=== PATIENT | male | born 1955 | race Caucasian/White ===

== ENCOUNTER 2016-10-19 14:03 | Emergency (ER) | payer OTHER ==
[~2016-10-19] VITALS: Ht 188 cm; Wt 81.6 kg
--- NOTE | 2016-10-19 14:05 | PHYS DOC ---
Adult General HPI HPI Patient is a 61 year old male presenting to the emergency department via EMS for evaluation of altered mental status. Patient was reportedly laying on the sidewalk confused and an ambulance was called and they said that he was quite confused. Patient has since returned back to baseline. Patient admits that he has seizures and takes Dilantin daily. He does not know if he missed his last dose. Patient says that he is having no headache chest pain abdominal pain back pain unilateral weakness numbness or tingling. He does not remember the specific circumstances of how he passed out. Patient is in no obvious distress with normal vital signs. Review of Systems Review of Systems Constitutional: Denies fever or chills [] Eyes: Denies change in visual acuity, redness, or eye pain [] HENT: Denies nasal congestion or sore throat [] Respiratory: Denies cough or shortness of breath [] Cardiovascular: No additional information not addressed in HPI [] GI: Denies abdominal pain, nausea, vomiting, bloody stools or diarrhea [] : Denies dysuria or hematuria [] Musculoskeletal: Denies back pain or joint pain [] Integument: Denies rash or skin lesions [] Neurologic: Denies headache, focal weakness or sensory changes [] Current Medications Current Medications Current Medications Medications (Trade) Dose Ordered Sig/Joseph Start Time Stop Time Status Last Admin Dose Admin Ceftriaxone Sodium 50 ml @ 100 mls/hr 1X ONCE 10/19/16 15:30 10/19/16 16:00 DC 10/19/16 15:21 100 MLS/HR Sodium Chloride 1,000 ml @ 1,000 mls/hr 1X ONCE 10/19/16 14:30 10/19/16 15:30 DC 10/19/16 14:59 1,000 MLS/HR Allergies Allergies Allergies Coded Allergies Type Severity Reaction Last Updated Verified No Known Drug Allergies 10/19/16 No Physical Exam Physical Exam Constitutional: Disheveled chronically ill-appearing male. HENT: Normocephalic, atraumatic, bilateral external ears normal, oropharynx moist, no oral exudates, nose normal. [] Eyes: PERRLA, EOMI, conjunctiva normal, no discharge. [] Neck: Normal range of motion, no tenderness, supple, no stridor. [] Cardiovascular:Heart rate regular rhythm, no murmur [] Lungs & Thorax: Bilateral breath sounds clear to auscultation [] Abdomen: Bowel sounds normal, soft, no tenderness, no masses, no pulsatile masses. [] Skin: Warm, dry, no erythema, no rash. [] Back: No tenderness, no CVA tenderness. [] Extremities: No tenderness, no cyanosis, no clubbing, ROM intact, no edema. [] Neurologic: Alert and oriented X 3, normal motor function, normal sensory function, no focal deficits noted. [] Current Patient Data Vital Signs Vital Signs Date Time Temp Pulse Resp B/P (MAP) Pulse Ox O2 Delivery O2 Flow Rate FiO2 10/19/16 14:10 98.2 75 18 129/85 (100) 99 Room Air 98.2 Lab Values Laboratory Tests Test 10/19/16 14:20 White Blood Count 7.9 x10^3/uL (4.0-11.0) Red Blood Count 4.17 x10^6/uL (4.30-5.70) L Hemoglobin 13.6 g/dL (13.0-17.5) Hematocrit 40.5 % (39.0-53.0) Mean Corpuscular Volume 97 fL (79-100) Mean Corpuscular Hemoglobin 33 pg (25-35) Mean Corpuscular Hemoglobin Concent 34 g/dL (31-37) Red Cell Distribution Width 14.0 % (11.5-14.5) Platelet Count 284 x10^3/uL (140-400) Neutrophils (%) (Auto) 59 % (31-73) Lymphocytes (%) (Auto) 30 % (24-48) Monocytes (%) (Auto) 10 % (0-9) H Eosinophils (%) (Auto) 0 % (0-3) Basophils (%) (Auto) 1 % (0-3) Neutrophils # (Auto) 4.7 x10^3uL (1.8-7.7) Lymphocytes # (Auto) 2.4 x10^3/uL (1.0-4.8) Monocytes # (Auto) 0.8 x10^3/uL (0.0-1.1) Eosinophils # (Auto) 0.0 x10^3/uL (0.0-0.7) Basophils # (Auto) 0.1 x10^3/uL (0.0-0.2) Urine Color Yellow Urine Clarity Turbid Urine pH 6.5 Urine Specific Burwell 1.015 Urine Protein 100 mg/dL (NEG-TRACE) Urine Glucose (UA) Negative mg/dL (NEG) Urine Ketones (Stick) Negative mg/dL (NEG) Urine Blood Large (NEG) Urine Nitrite Positive (NEG) Urine Bilirubin Negative (NEG) Urine Urobilinogen Dipstick 1.0 mg/dL (0.2 mg/dL) Urine Leukocyte Esterase Large (NEG) Urine RBC 3-5 /HPF (0-2) Urine WBC Tntc /HPF (0-4) Urine Bacteria Many /HPF (0-FEW) Sodium Level 138 mmol/L (136-145) Potassium Level 3.7 mmol/L (3.5-5.1) Chloride Level 102 mmol/L (98-107) Carbon Dioxide Level 29 mmol/L (21-32) Anion Gap 7 (6-14) Blood Urea Nitrogen 14 mg/dL (8-26) Creatinine 1.2 mg/dL (0.7-1.3) Estimated GFR (Cockcroft-Gault) 61.6 BUN/Creatinine Ratio 12 (6-20) Glucose Level 84 mg/dL (70-99) Calcium Level 9.0 mg/dL (8.5-10.1) Magnesium Level 1.8 mg/dL (1.8-2.4) Total Bilirubin 0.4 mg/dL (0.2-1.0) Aspartate Amino Transferase (AST) 19 U/L (15-37) Alanine Aminotransferase (ALT) 19 U/L (16-63) Alkaline Phosphatase 85 U/L (46-116) Creatine Kinase 61 U/L (39-308) Total Protein 6.9 g/dL (6.4-8.2) Albumin 3.3 g/dL (3.4-5.0) L Albumin/Globulin Ratio 0.9 (1.0-1.7) L Lipase 104 U/L (73-393) Thyroid Stimulating Hormone (TSH) 2.736 uIU/mL (0.358-3.74) Salicylates Level 5.5 mg/dL (2.8-20.0) Salicylate Last Dose Date Unknown Salicylate Last Dose Time Unknown Urine Opiates Screen Neg (NEG) Urine Methadone Screen Neg (NEG) Acetaminophen Level < 2 mcg/ml (10-30) L Acetaminophen Last Dose Date Unknown Acetaminophen Last Dose Time Unknown Urine Barbiturates Neg (NEG) Phenytoin (Dilantin) Level < 0.4 mcg/mL (10.0-20.0) L Phenytoin Last Dose Date 10/19/16 Phenytoin Last Dose Time 0000 Urine Phencyclidine Screen Neg (NEG) Urine Amphetamine/Methamphetamine Neg (NEG) Urine Benzodiazepines Screen Neg (NEG) Urine Cocaine Screen Neg (NEG) Urine Cannabinoids Screen Pos (NEG) Ethyl Alcohol Level < 10 mg/dL (0-10) Urine Ethyl Alcohol Neg (NEG) Laboratory Tests 10/19/16 14:20 Laboratory Tests 10/19/16 14:20 EKG EKG Sinus rhythm at 62 bpm with normal axis no obvious ST elevation or depression and normal T waves. Radiology/Procedures Radiology/Procedures CT head without contrast 10/19/2016 Indication: Altered mental status Comparison: None available Technique: Multiple axial noncontrast CT images of the head were obtained from the skull base through the vertex. 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 Ventricles, sulci and basal cisterns are mildly prominent compatible with cerebral volume loss. There is encephalomalacia involving the left frontal and temporal lobes. There is possible left middle cranial fossa arachnoid cyst. There is encephalomalacia in the ventral right temporal lobe. There is geographic hypoattenuation in the right frontal operculum which may represent a subacute infarct given loss of mayer-white matter differentiation. There is no acute intracranial hemorrhage. No mass, mass effect or midline shift. Orbits are normal in appearance. Paranasal sinuses are well aerated. Mastoid air cells are well aerated. Impression: 1. There is no acute intracranial hemorrhage. 2. Hypoattenuation the right frontal operculum plus of the mayer-white matter differentiation. Findings may represent subacute to chronic infarct. Further evaluation with MRI may be of benefit. 3. 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 4. Right frontal craniotomy defect with encephalomalacia involving the right temporal lobe. PQRS Compliance Statement: One or more of the following individualized dose reduction techniques were utilized for this examination: 1. Automated exposure control 2. Adjustment of the mA and/or kV according to patient size 3. Use of iterative reconstruction technique DICTATED and SIGNED BY: MADDIE PYLE MD DATE: 10/19/16 1446 Course & Med Decision Making Course & Med Decision Making Patient says that he is back to baseline and he is alert and oriented 3 with a benign neurologic exam. CT read is concerning for possible subacute CVA. I recommended admission and patient refused stating that he had things he needed to do tonight. Patient verbalized understanding of my concerns about CVA and deterioration. Patient given 1 g of IV Rocephin in the emergency department for his urinary tract infection. Patient was observed for over several hours and he still says that he is at baseline and wants to go home. I again recommended Admission but he refused. Patient has an undetectable Dilantin level and I do not know for sure that he is on Dilantin so I am not going to load him or give him a prescription rather I told him to resume what ever seizure medication he is taking at home. Patient is alert and oriented 3 and has a normal neurologic exam so he will be discharged as per his request. Patient told to come back to the emergency department with any concerns. Patient aware and agreeable with plan for discharge and verbalized understanding of the need for short-term follow-up in the strict ER return precautions discussed worsening pain weakness seizures or other general concerns. Dragon Disclaimer Dragon Disclaimer This electronic medical record was generated, in whole or in part, using a voice recognition dictation system. Departure Departure Impression: Primary Impression: Encephalopathy acute Additional Impression: UTI (urinary tract infection) Disposition: 01 HOME, SELF-CARE Condition: GOOD Patient Instructions: Urinary Tract Infection Scripts Cephalexin (KEFLEX) 500 Mg Capsule 1 CAP PO BID, #14 CAP Prov: MITESH SANTO DO 10/19/16 Problem Qualifiers MITESH SANTO DO Oct 19, 2016 14:05
[2016-10-19 14:30] LABS: BASO # 0.1 x10^3/uL (0.0-0.2); BASO % 1 % (0-3); EOS % 0 % (0-3); HEMATOCRIT 40.5 % (39.0-53.0); HEMOGLOBIN 13.6 g/dL (13.0-17.5); LYMPH # 2.4 x10^3/uL (1.0-4.8); LYMPH % 30 % (24-48); MEAN CORPUSCULAR HEMOGLOBIN 33 pg (25-35); MEAN CORPUSCULAR HGB CONC 34 g/dL (31-37); MEAN CORPUSCULAR VOLUME 97 fL (79-100); MONO % 10 % (0-9); NEUT % 59 % (31-73); PLATELET COUNT 284 x10^3/uL (140-400); RED BLOOD COUNT 4.17 x10^6/uL (4.30-5.70); WHITE BLOOD COUNT 7.9 x10^3/uL (4.0-11.0)
[2016-10-19] MEDS ORDERED: IV NORMAL SALINE 1000ML BAG 1,000 ML IV ONE (14:30)
[2016-10-19 14:32] LABS: BILIRUBIN,URINE NEGATIVE (NEG); GLUCOSE,URINE NEGATIVE (NEG); NITRITE,URINE POSITIVE (NEG); PH,URINE 6.5; PROTEIN,URINE 100 mg/dL (NEG-TRACE)
[2016-10-19 14:37] LABS: BARBITURATES NEG (NEG); BENZODIAZEPINES NEG (NEG); CANNABINOIDS POS (NEG); COCAINE NEG (NEG); METHADONE NEG (NEG); OPIATES NEG (NEG); PHENCYCLIDINE NEG (NEG)
[2016-10-19 14:43] LABS: BACTERIA,URINE MANY /HPF (0-FEW); WBC,URINE TNTC /HPF (0-4)
[2016-10-19 14:54] LABS: CREATININE 1.2 mg/dL (0.7-1.3); GFR 61.6; POTASSIUM 3.7 mmol/L (3.5-5.1)
--- NOTE | 2016-10-19 14:56 | RAD ---
CT head without contrast 10/19/2016 Indication: Altered mental status Comparison: None available Technique: Multiple axial noncontrast CT images of the head were obtained from the skull base through the vertex. 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 Ventricles, sulci and basal cisterns are mildly prominent compatible with cerebral volume loss. There is encephalomalacia involving the left frontal and temporal lobes. There is possible left middle cranial fossa arachnoid cyst. There is encephalomalacia in the ventral right temporal lobe. There is geographic hypoattenuation in the right frontal operculum which may represent a subacute infarct given loss of mayer-white matter differentiation. There is no acute intracranial hemorrhage. No mass, mass effect or midline shift. Orbits are normal in appearance. Paranasal sinuses are well aerated. Mastoid air cells are well aerated. Impression: 1. There is no acute intracranial hemorrhage. 2. Hypoattenuation the right frontal operculum plus of the mayer-white matter differentiation. Findings may represent subacute to chronic infarct. Further evaluation with MRI may be of benefit. 3. 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 4. Right frontal craniotomy defect with encephalomalacia involving the right temporal lobe. PQRS Compliance Statement: One or more of the following individualized dose reduction techniques were utilized for this examination: 1. Automated exposure control 2. Adjustment of the mA and/or kV according to patient size 3. Use of iterative reconstruction technique
[2016-10-19 14:57] LABS: ETHANOL < 10 mg/dL (0-10)
[2016-10-19 15:00] LABS: ALBUMIN 3.3 g/dL (3.4-5.0); ALBUMIN/GLOBULIN RATIO 0.9 (1.0-1.7); MAGNESIUM 1.8 mg/dL (1.8-2.4); TOTAL BILIRUBIN 0.4 mg/dL (0.2-1.0); TOTAL PROTEIN 6.9 g/dL (6.4-8.2)
--- NOTE | 2016-10-19 15:45 | EKG ---
[facility] [address] [place] [address] Test Date: 2016-10-19 Test Time: 14:07:24 Pat Name: GABRIELE TRINIDAD Department: Room: Gender: Male Optimization Manager: : 1955 Requested By: MITESH SANTO Order Number: [id number] Reading MD: Mary Kate Donovan Measurements Intervals [place] Rate: 62 P: 59 ID: [id number] QRS: 49 QRSD: 82 T: 56 QT: 402 QTc: 410 Interpretive Statements SINUS RHYTHM QRS(T) CONTOUR ABNORMALITY CONSIDER ANTEROSEPTAL MYOCARDIAL DAMAGE Electronically Signed On 10-21-2016 16:05:47 CDT by Mary Kate Donovan
[2016-10-19 16:10] VITALS: BP 132/81
[2016-10-19] MEDS ORDERED: CEPH-264 PO (16:17)
== END 2016-10-19 17:05 | disposition home or self-care (01) ==
LOC: ER 14:03
DX: G93.40 Encephalopathy, unspecified (principal); N39.0 Urinary tract infection, site not specified
CPT/HCPCS: 36415; 70450; 80053; 80185; 80307; 80329; 81001; 82550; 83690; 83735; 84443; 85025; 87086; 87186; 93005; 96365; 99285; G0480; J0690; J7030; 96361; G0479